=== PATIENT | female | born 1970 | race Hispanic/Latino ===

== ENCOUNTER 2020-01-11 19:15 | Emergency (ER) | payer OTHER, SELFPAY ==
[2020-01-11] MEDS ORDERED: FAMOTIDINE 20 MG/2 ML VIAL IV ONE (20:02)
[2020-01-11] MEDS ORDERED: NA CHLORIDE 0.9% 1,000 ML ONE (20:02)
[2020-01-11] MEDS ORDERED: MORPHINE 4 MG/ML SYR ONE (20:02)
[2020-01-11] MEDS ORDERED: ONDANSETRON 4 MG/2 ML VIAL ONE (20:02)
[2020-01-11 20:16] LABS: Absolute Lymphocytes (CBC) 2.4 K/uL (0.7-4.9); Basophils % 0.9 % (0-1.3); Hematocrit 43.9 % (36.0-45.0); MPV 9.3 fL (7.6-11.3)
[2020-01-11 20:22] LABS: Urine Blood NEGATIVE (NEG); Urine Glucose 2+ (NEG); Urine Protein NEGATIVE (NEG)
--- NOTE | 2020-01-11 20:26 | RAD REPORT ---
EXAM DESCRIPTION: CTAbdomen Pelvis W Contrast - 01/11/2020 8:15 pm CLINICAL HISTORY: Abdominal pain. ABD PAIN COMPARISON: No comparisons TECHNIQUE: Biphasic CT imaging of the abdomen and pelvis was performed with 100 ml non-ionic IV cont rast. All CT scans are performed using dose optimization technique as appropriate and may include automated exposure control or mA/KV adjustment according to patient size. FINDINGS: The lung bases are clear. The liver, spleen, pancreas, adrenal glands and kidneys are within normal limits. Several benign appe aring liver and renal cysts are present, largest cyst noted involving the right kidney laterally sarina uring 5.4 cm and benign in appearance. No bowel obstruction, free air, free fluid or abscess. The appendix is normal. No evidence of signi ficant lymphadenopathy. No suspicious bony findings. IMPRESSION: No acute intra-abdominal or pelvic finding.
[2020-01-11 20:34] LABS: Urine Bacteria <20 /HPF (<20); Urine Culture Reflex Order NOT NEEDED; Urine RBC <5 /HPF (NONE SEEN); Urine Yeast FEW (NONE SEEN)
[2020-01-11 20:35] LABS: Bilirubin Direct 0.1 mg/dL (0-0.2); Bilirubin Total 0.6 mg/dL (0.2-1.0); Protein, Total 7.8 g/dL (6.4-8.2)
[2020-01-11 20:36] LABS: Potassium 3.4 mmol/L (3.5-5.1)
[2020-01-11] MEDS ORDERED: PANTOPRAZOLE 40 MG INJ ONE (20:59)
[2020-01-11] MEDS ORDERED: propofoL 1,000 MG/100 ML VIAL IV ONE (21:00)
[2020-01-11] MEDS ORDERED: CEFTRIAXONE/SWI 1gm 1 GM/10 ML SYR ONE (21:17)
[2020-01-11] MEDS ORDERED: KETOROLAC 30 MG/ML INJ ONE (22:38)
--- NOTE | 2020-01-12 00:04 | EDPHYS ---
Physician Documentation [facility] Name: Drea Smith Age: 49 yrs Sex: Female : 1970 Arrival Date: 01/11/2020 Time: 19:18 Bed 13 Private MD: ED Physician Duncan Wylie HPI: 01/10 19:40 This 49 yrs old Female presents to ER via Ambulatory with complaints of Sharp mh7 Side Pain, Nausea/Vomiting. 19:41 The patient complains of pain in the right flank. Onset: The symptoms/episode mh7 began/occurred 3 day(s) ago. Modifying factors: The symptoms are alleviated by nothing. the symptoms are aggravated by palpation/percussion. Associated signs and symptoms: Pertinent positives: urinary frequency, nausea, vomiting, Pertinent negatives: diarrhea, dizziness, headache, hematuria, pain radiating to the lower extremities. Severity of pain: At its worst the pain was moderate yesterday, in the emergency department the pain is unchanged. 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 - Social history:: Smoking status: Patient denies any tobacco usage or history of. ROS: 19:41 Constitutional: Negative for fever, chills, and weight loss, Eyes: Negative for injury, mh7 pain, redness, and discharge, ENT: Negative for injury, pain, and discharge, Neck: Negative for injury, pain, and swelling, Cardiovascular: Negative for chest pain, palpitations, and edema, Respiratory: Negative for shortness of breath, cough, wheezing, and pleuritic chest pain, MS/Extremity: Negative for injury and deformity, Skin: Negative for injury, rash, and discoloration, Neuro: Negative for headache, weakness, numbness, tingling, and seizure, Psych: Negative for depression, anxiety, suicide ideation, homicidal ideation, and hallucinations, Allergy/Immunology: Negative for hives, rash, and allergies, Endocrine: Negative for neck swelling, polydipsia, polyuria, polyphagia, and marked weight changes, Hematologic/Lymphatic: Negative for swollen nodes, abnormal bleeding, and unusual bruising. Exam: 19:41 Head/Face: Normocephalic, atraumatic. Eyes: Pupils equal round and reactive to light, mh7 extra-ocular motions intact. Lids and lashes normal. Conjunctiva and sclera are non-icteric and not injected. Cornea within normal limits. Periorbital areas with no swelling, redness, or edema. Neck: Trachea midline, no thyromegaly or masses palpated, and no cervical lymphadenopathy. Supple, full range of motion without nuchal rigidity, or vertebral point tenderness. No Meningismus. Chest/axilla: Normal chest wall appearance and motion. Nontender with no deformity. No lesions are appreciated. Cardiovascular: Regular rate and rhythm with a normal S1 and S2. No gallops, murmurs, or rubs. Normal PMI, no JVD. No pulse deficits. Respiratory: Lungs have equal breath sounds bilaterally, clear to auscultation and percussion. No rales, rhonchi or wheezes noted. No increased work of breathing, no retractions or nasal flaring. 19:41 Skin: Warm, dry with normal turgor. Normal color with no rashes, no lesions, and no evidence of cellulitis. MS/ Extremity: Pulses equal, no cyanosis. Neurovascular intact. Full, normal range of motion. Neuro: Awake and alert, GCS 15, oriented to person, place, time, and situation. Cranial nerves II-XII grossly intact. Motor strength 5/5 in all extremities. Sensory grossly intact. Cerebellar exam normal. Normal gait. Psych: Awake, alert, with orientation to person, place and time. Behavior, mood, and affect are within normal limits. 19:41 Constitutional: The patient appears in no acute distress, alert, awake, uncomfortable. 19:41 Abdomen/GI: Inspection: abdomen appears normal, obese Bowel sounds: normal, in all quadrants, Palpation: moderate abdominal tenderness, in the right lower quadrant, Rectal exam: the exam is deferred, because of patient request, Indicators: McBurney's point is not tender, Arana's sign is negative, Rovsing's sign is negative, Obturator sign is negative, Psoas sign is negative, Liver: no appreciated palpable abnormalities, Hernia: not appreciated. 19:41 Back: pain, is absent, ROM is normal, normal spinal alignment noted, CVA tenderness, that is moderate, is noted on the right, vertebral tenderness, is not appreciated, muscle spasm, is not present. 22:39 ECG was reviewed by the Attending Physician. [facility] Vital Signs: 19:28 BP 184 / 114; Pulse 99; Resp 16 S; Temp 97.3(TE); Pulse Ox 100% on R/A; Weight 68.95 kg ca1 (R); Height 4 ft. 10 in. (147.32 cm) (R); Pain 10/10; 20:35 BP 166 / 98; Pulse 92; Resp 18; Pulse Ox 98% on R/A; ea 21:30 BP 158 / 100; Pulse 80; Resp 18; Pulse Ox 99% ; ea 23:30 BP 160 / 90; Pulse 80; Resp 18; Pulse Ox 99% on R/A; ea 01/11 00:24 BP 157 / 99; Pulse 88; Resp 18; Pulse Ox 98% ; ea 01/10 19:28 Body Mass Index 31.77 (68.95 kg, 147.32 cm) ca1 MDM: 01/10 19:35 [facility] medically screened. [facility] 23:59 Differential diagnosis: nephrolithiasis, pyelonephritis, UTI. Data reviewed: [facility] signs, nurses notes, lab test result(s), CBC, electrolytes, urinalysis. Data interpreted: Pulse oximetry: on room air is 98 %. Interpretation: normal. Counseling: I had a detailed discussion with the patient and/or guardian regarding: the historical points, exam findings, and any diagnostic results supporting the discharge/admit diagnosis, the presence of at least one elevated blood pressure reading (>120/80) during this emergency department visit, lab results, radiology results, the need for outpatient follow up, to return to the emergency department if symptoms worsen or persist or if there are any questions or concerns that arise at home. Response to treatment: the patient's symptoms have resolved after treatment, the patient's blood pressure is in an acceptable range, mental status has returned to baseline, the patient no longer shows bradycardia, the patient is not short of breath, the patient is not tachycardic, the patient's pain is gone, the patient's temperature has normalized, patient is well hydrated. 01/10 19:37 Order name: Basic Metabolic Panel; Complete Time: 20:46 [facility] 01/10 19:37 Order name: CBC with Diff; Complete Time: 20:46 [facility] 01/10 19:37 Order name: Hepatic Function; Complete Time: 20:46 [facility] 01/10 19:37 Order name: Lipase; Complete Time: 20:46 [facility] 01/10 20:17 Order name: Urine Culture 01/10 19:57 Order name: CT Abd/Pelvis - IV Contrast Only; Complete Time: 20:46 [facility] 01/10 20:18 Order name: Urine Microscopic Only; Complete Time: 20:46 [facility] 01/10 20:19 Order name: Urine Dipstick--Ancillary (enter results); Complete Time: 20:46 01/11 00:10 Order name: Glucose, Ancillary Testing [facility] 01/10 19:37 Order name: IV Saline Lock; Complete Time: 20:10 [facility] 01/10 19:37 Order name: Labs collected and sent; Complete Time: 20:10 [facility] 01/10 19:37 Order name: Urine Dipstick-Ancillary (obtain specimen); Complete Time: 20:17 [facility] 01/10 19:57 Order name: EKG - Nurse/Tech; Complete Time: 21:20 7 EC:39 Rate is 72 beats/min. Rhythm is regular, Normal Sinus Rhythm. QRS [place] is Normal. [place] mh7 interval is normal. QRS interval is normal. QT interval is normal. No Q waves. T waves are Normal. No ST changes noted. Clinical impression: Normal ECG. Administered Medications: 20:32 Drug: Pepcid 20 mg Route: IVP; Site: right antecubital; ea 21:19 Follow up: Response: No adverse reaction ea 20:33 Drug: NS 0.9% 1000 ml Route: IV; Rate: 1000 ml; Site: right antecubital; ea 23:30 Follow up: Response: No adverse reaction; IV Status: Completed infusion; IV Intake: ea 1000ml 20:33 Drug: morphine 4 mg {Note: RASS 0 .} Route: IVP; Site: right antecubital; ea 21:19 Follow up: Response: No adverse reaction; Pain is decreased; RASS: Alert and Calm (0) ea 20:33 Drug: Zofran (Ondansetron) 4 mg Route: IVP; Site: right antecubital; ea 21:19 Follow up: Response: No adverse reaction ea 21:10 Drug: Rocephin - (cefTRIAXone) 1 grams Route: IVPB; Infused Over: 30 mins; Site: right ea antecubital; 22:00 Follow up: Response: No adverse reaction; IV Status: Completed infusion ea 22:29 Drug: TORadol 30 mg Route: IVP; Site: right antecubital; ea 23:00 Follow up: Response: No adverse reaction ea Disposition: 01/12/20 00:02 Discharged to Home. Impression: Pyelonephritis. - Condition is Stable. - Discharge Instructions: Pyelonephritis, Adult, [id number]. - Prescriptions for Zofran ODT 4 mg Oral tablet,disintegrating - place 1 tablet by TRANSLINGUAL route every 8 hours As needed; 10 tablet. metformin 500 mg Oral tablet - take 1 tablet by ORAL route 2 times per day with morning and evening meals; 30 tablet. Tylenol- Codeine #3 300-30 mg Oral Tablet - take 2 tablets by ORAL route every 6 hours As needed; 20 tablet. Cipro 500 mg Oral Tablet - take 1 tablet by ORAL route every 12 hours for 10 days; 20 tablet. - Medication Reconciliation Form, Thank You Letter, Antibiotic Education, Prescription Opioid Use form. - Follow up: Private Physician; When: 1 - 2 days; Reason: Worsening of condition, Recheck today's complaints, Continuance of care, Re-evaluation by your physician. Follow up: Michelle Wilkins MD; When: 1 - 2 days; Reason: Worsening of condition, Recheck today's complaints. - Problem is new. - Symptoms have improved. Signatures: Dispatcher [employer] EDMS Brianna Beltran RN RN ea Acob, Cheryl, RN RN ca1 Holmes, Maurice, MD MD mh7 Corrections: (The following items were deleted from the chart) 01/11 00:24 00:02 01/12/2020 00:02 Discharged to Home. Impression: Pyelonephritis. Condition is ea Stable. Forms are Medication Reconciliation Form, Thank You Letter, Antibiotic Education, Prescription Opioid Use. Follow up: Private Physician; When: 1 - 2 days; Reason: Worsening of condition, Recheck today's complaints, Continuance of care, Re-evaluation by your physician. Follow up: Michelle Wilkins; When: 1 - 2 days; Reason: Worsening of condition, Recheck today's complaints. Problem is new. Symptoms have improved. mh7
--- NOTE | 2020-01-12 00:04 | ER ---
Nurse's Notes [facility] Name: Drea Smith Age: 49 yrs Sex: Female : 1970 Arrival Date: 01/11/2020 Time: 19:18 Bed 13 Private MD: Diagnosis: Pyelonephritis Presentation: 01/10 19:28 Chief complaint: Patient states: R lower back pain radiating to the L lower quadrant x ca1 2 days ago. Reports N/V. Reports urinary frequency and urgency. Denies diarrhea. Denies burning with urination. Coronavirus screen: Client denies travel out of the [place] in the last 14 days. At this time, the client does not indicate any symptoms associated with coronavirus-19. Ebola Screen: Patient negative for fever greater than or equal to 101.5 degrees Fahrenheit, and additional compatible Ebola Virus Disease symptoms Patient denies exposure to infectious person. Patient denies travel to an Ebola-affected area in the 21 days before illness onset. No symptoms or risks identified at this time. Initial Sepsis Screen: Does the patient meet any 2 criteria? No. Patient's initial sepsis screen is negative. Does the patient have a suspected source of infection? No. Patient's initial sepsis screen is negative. Risk Assessment: Do you want to hurt yourself or someone else? Patient reports no desire to harm self or others. Onset of symptoms was January 11, 2020. 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 - Social history:: Smoking status: Patient denies any tobacco usage or history of. Screenin:11 Abuse screen: Denies threats or abuse. Nutritional screening: No deficits noted. ea Tuberculosis screening: No symptoms or risk factors identified. Fall Risk IV access (20 points). Assessment: 20:10 General: Appears in no apparent distress. Behavior is appropriate for age. Pain: ea Complains of pain in right flank. Neuro: Level of Consciousness is awake, alert, obeys commands, Oriented to person, place, time, situation. Respiratory: Airway is patent Respiratory effort is even, unlabored, Respiratory pattern is regular, symmetrical. 21:20 Reassessment: Patient and/or family updated on plan of care and expected duration. Pain ea level reassessed. Patient is alert, oriented x 3, equal unlabored respirations, skin warm/dry/pink. 22:47 Reassessment: Patient and/or family updated on plan of care and expected duration. Pain ea level reassessed. Patient is alert, oriented x 3, equal unlabored respirations, skin warm/dry/pink. 23:06 Reassessment: Patient and/or family updated on plan of care and expected duration. Pain ea level reassessed. Patient is alert, oriented x 3, equal unlabored respirations, skin warm/dry/pink. 01/11 00:23 Reassessment: Patient and/or family updated on plan of care and expected duration. Pain ea level reassessed. Patient is alert, oriented x 3, equal unlabored respirations, skin warm/dry/pink. Discharge instruction given to patient, verbalized the understanding of instruction. Vital Signs: 01/10 19:28 BP 184 / 114; Pulse 99; Resp 16 S; Temp 97.3(TE); Pulse Ox 100% on R/A; Weight 68.95 kg ca1 (R); Height 4 ft. 10 in. (147.32 cm) (R); Pain 10/10; 20:35 BP 166 / 98; Pulse 92; Resp 18; Pulse Ox 98% on R/A; ea 21:30 BP 158 / 100; Pulse 80; Resp 18; Pulse Ox 99% ; ea 23:30 BP 160 / 90; Pulse 80; Resp 18; Pulse Ox 99% on R/A; ea 01/11 00:24 BP 157 / 99; Pulse 88; Resp 18; Pulse Ox 98% ; ea 01/10 19:28 Body Mass Index 31.77 (68.95 kg, 147.32 cm) ca1 ED Course: 01/10 19:18 Patient arrived in ED. bp1 19:25 Duncan Wylie MD is Attending Physician. mh7 19:28 Brianna Beltran RN is Primary Nurse. ea 19:29 Triage completed. ca1 19:30 Arm band placed on right wrist. ca1 20:03 Inserted saline lock: 20 gauge in right antecubital area, using aseptic technique. ea Blood collected. 20:11 Patient has correct armband on for positive identification. Bed in low position. Call ea light in reach. Side rails up X2. 20:15 CT Abd/Pelvis - IV Contrast Only In Process Unspecified. EDMS 01/11 00:01 Michelle Wilkins MD is Referral Physician. [facility] 00:22 No provider procedures requiring assistance completed. IV discontinued, intact, ea bleeding controlled, No redness/swelling at site. Pressure dressing applied. Administered Medications: 01/10 20:32 Drug: Pepcid 20 mg Route: IVP; Site: right antecubital; ea 21:19 Follow up: Response: No adverse reaction ea 20:33 Drug: NS 0.9% 1000 ml Route: IV; Rate: 1000 ml; Site: right antecubital; ea 23:30 Follow up: Response: No adverse reaction; IV Status: Completed infusion; IV Intake: ea 1000ml 20:33 Drug: morphine 4 mg {Note: RASS 0 .} Route: IVP; Site: right antecubital; ea 21:19 Follow up: Response: No adverse reaction; Pain is decreased; RASS: Alert and Calm (0) ea 20:33 Drug: Zofran (Ondansetron) 4 mg Route: IVP; Site: right antecubital; ea 21:19 Follow up: Response: No adverse reaction ea 21:10 Drug: Rocephin - (cefTRIAXone) 1 grams Route: IVPB; Infused Over: 30 mins; Site: right ea antecubital; 22:00 Follow up: Response: No adverse reaction; IV Status: Completed infusion ea 22:29 Drug: TORadol 30 mg Route: IVP; Site: right antecubital; ea 23:00 Follow up: Response: No adverse reaction ea Intake: 23:30 IV: 1000ml; Total: 1000ml. ea Outcome: 01/11 00:02 Discharge ordered by . [facility] 00:22 Discharged to home ambulatory, with family. ea 00:22 Condition: stable 00:22 Discharge instructions given to patient, Instructed on discharge instructions, follow up and referral plans. medication usage, Demonstrated understanding of instructions, follow-up care, medications, Prescriptions given X 3. 00:24 Patient left the ED. ea Signatures: Dispatcher [employer] EDBrianna Lopez RN RN ea Acob, Cheryl, RN RN ca1 [place], Brittany bp1 Holmes, Maurice, MD MD mh7
[2020-01-12 00:49] VITALS: TEMP 97.3
[2020-01-12 00:54] VITALS: BP 157/99; O2SAT 98
== END 2020-01-12 00:24 | disposition home or self-care (01) ==
LOC: ER 19:15
DX: N12 Tubulo-interstitial nephritis, not specified as acute or chronic (principal); I10 Essential (primary) hypertension
CPT/HCPCS: 36415; 74177; 80048; 80076; 81003; 81015; 82565; 82947; 83690; 85025; 87086; 87088; 93005; 96361; 96365; 96375; 99284; C9113; J0696; J2405; J2704; J7030; Q9967